=== PATIENT | female | born 1960 | race Caucasian/White ===

== ENCOUNTER 2017-09-02 02:27 | Emergency (ER) | payer OTHER ==
[2017-09-02 02:36] VITALS: BP 146/79; PULSE 77; RESP 18; TEMP 98.5; O2SAT 98
[2017-09-02] MEDS ORDERED: TOPA50TA7 PO (02:46)
[2017-09-02] MEDS ORDERED: LOSA50TA2 PO (02:46)
[2017-09-02] MEDS ORDERED: BUTA1CAP PO (02:46)
[2017-09-02] MEDS ORDERED: FLUT1INH7 INH (02:46)
[2017-09-02] MEDS ORDERED: LEVO25TA4 PO (02:46)
[2017-09-02] MEDS ORDERED: MONT4CHW2 CHEW (02:46)
[2017-09-02] MEDS ORDERED: VENL75TA PO (02:46)
[2017-09-02] MEDS ORDERED: OMEP40CA2 PO (02:46)
[2017-09-02] MEDS ORDERED: PRED20 PO (02:54)
--- NOTE | 2017-09-02 02:54 | PD ---
HPI Chief Complaint: Skin Problem Time Seen by Provider: 02:48 Travel History International Travel<30 days: No Contact w/Intl Traveler<30days: No Traveled to known affect area: No History of Present Illness HPI Patient is a 56-year-old female who presents the emergency room for evaluation of bedbugs. Patient reports that she was sitting at a local motel, reports that her 14-year-old grandchild noticed bug crawling on the bed, reports that she woke up and noted it to be a bedbug. Reports that she smashed 1 of these bugs and jaqueline blood "splattered everywhere." She does have pictures of these bugs. Patient currently requesting steroids for her pruritus. Reports that she was just bit prior to arrival to the emergency room. PFSH Past Medical History Narrative Medical Past medical history includes hypertension, migraine headaches, seizures, depression, GERD, hypothyroidism, asthma ?: Not Past Surgical History Surgical History: No Previous Surgery Social History Alcohol Use: No Tobacco Use: No Substance Use: No Allergies-Medications (Allergen,Severity, Reaction): Coded Allergies: amoxicillin (Verified Allergy, Intermediate, Hives, 09/02/17) clavulanic acid (Verified Allergy, Intermediate, Hives, 09/02/17) clindamycin (Verified Allergy, Intermediate, Hives, 09/02/17) iron (Verified Allergy, Intermediate, Hives, 09/02/17) IV FORM ONLY Reported Meds & Prescriptions Reported Meds & Active Scripts Active Reported Fioricet (Iokmeoxqzm-Itwqvpltenmda-Zsynerxw) 50-300-40 Mg Cap 1-2 Cap PO Q6H PRN Breo Ellipta Inh (Fluticasone/Vilanterol) 200-25 Mcg/Act Inh 1 Puff INH DAILY Use daily at the same time. Singulair (Montelukast Sodium) 4 Mg Chew 4 Mg CHEW DAILY Losartan-Hydrochlorothiazide 50-12.5 Mg Tab 1 Tab PO DAILY Effexor (Venlafaxine HCl) 75 Mg Tab 75 Mg PO DAILY Levothyroxine (Levothyroxine Sodium) 25 Mcg Tab 25 Mcg PO DAILY Omeprazole 40 Mg Cap 40 Mg PO DAILY Topamax (Topiramate) 50 Mg Tab 50 Mg PO BID Review of Systems General / Constitutional: No: Fever Eyes: No: Visual changes HENT: No: Headaches Cardiovascular: No: Chest Pain or Discomfort Respiratory: No: Shortness of Breath Gastrointestinal: No: Abdominal Pain Genitourinary: No: Dysuria Musculoskeletal: No: Pain Skin: Positive Itching, No Rash Neurologic: No: Weakness Psychiatric: No: Depression Endocrine: No: Polydipsia Hematologic/Lymphatic: No: Easy Bruising Physical Exam Narrative GENERAL: Well-nourished, well-developed patient. SKIN: Focused skin assessment warm/dry. Patient with welts to lower extremities as well as upper extremities, patient has raised circumferential blanching rash, there is no petechiae or purpura HEAD: Normocephalic. EYES: No scleral icterus. No injection or drainage. NECK: Supple, trachea midline. No JVD or lymphadenopathy. CARDIOVASCULAR: Regular rate and rhythm without murmurs, gallops, or rubs. RESPIRATORY: Breath sounds equal bilaterally. No accessory muscle use. GASTROINTESTINAL: Abdomen soft, non-tender, nondistended. MUSCULOSKELETAL: No cyanosis, or edema. BACK: Nontender without obvious deformity. No CVA tenderness. Data Data Last Documented VS Vital Signs Date Time Temp Pulse Resp B/P (MAP) Pulse Ox O2 Delivery O2 Flow Rate FiO2 09/02/17 02:36 98.5 77 18 146/79 (101) 98 Orders Orders Dexamethasone Inj (Decadron Inj) (09/02/17 03:00) Famotidine (Pepcid) (09/02/17 03:00) MDM Medical Decision Making Medical Screen Exam Complete: Yes Emergency Medical Condition: Yes Medical Record Reviewed: Yes Interpretation(s) Vital Signs Date Time Temp Pulse Resp B/P (MAP) Pulse Ox O2 Delivery O2 Flow Rate FiO2 09/02/17 02:36 98.5 77 18 146/79 (101) 98 Differential Diagnosis Bedbugs Narrative Course 56-year-old female who presents the emergency room with complaints of bedbugs. Patient does have pictures of these bugs that she found in her motel bed. These bugs do appear to be bedbugs. Plan to treat for her pruritus with steroids. Patient reports that she does not do well with Benadryl as it has the opposite side effects for her. Patient only requesting relief with steroids at this time. Patient will be given an IM dose of dexamethasone, she will be discharged home with a prescription for prednisone Diagnosis Primary Impression: Bed bug bite Qualified Codes: W57.XXXA - Bitten or stung by nonvenomous insect and other nonvenomous arthropods, initial encounter Patient Instructions: General Instructions Additional Instructions: Return to ER as needed Med/Other Pt SpecificInfo: Prescription(s) given Scripts Prednisone (Prednisone) 20 Mg Tab 20 MG PO BID for 7 Days, #14 TAB 0 Refills Prov: Zoila Mraie DO 09/02/17 Disposition: 01 DISCHARGE HOME Condition: Stable Zoila Marie DO Sep 02, 2017 02:54
[2017-09-02] MEDS ORDERED: FAMOTIDINE 20 MG TAB PO ONE (03:00)
[2017-09-02] MEDS ORDERED: DEXAMETHASONE SOD PHOS 20 MG/5 ML VIAL IM ONE (03:00)
== END 2017-09-02 03:07 | disposition home or self-care (01) ==
LOC: PHED 02:27
DX: S40.862A Insect bite (nonvenomous) of left upper arm, initial encounter (principal); S40.861A Insect bite (nonvenomous) of right upper arm, initial encounter; S80.862A Insect bite (nonvenomous), left lower leg, initial encounter; S80.861A Insect bite (nonvenomous), right lower leg, initial encounter; W57.XXXA Bitten or stung by nonvenomous insect and other nonvenomous arthropods, initial encounter; Y92.59 Other trade areas as the place of occurrence of the external cause; E03.9 Hypothyroidism, unspecified; F32.9 Major depressive disorder, single episode, unspecified; I10 Essential (primary) hypertension; J45.909 Unspecified asthma, uncomplicated; K21.9 Gastro-esophageal reflux disease without esophagitis
CPT/HCPCS: 96372; 99283; J1100